=== PATIENT | female | born 1965 | race Caucasian/White ===

== ENCOUNTER 2021-08-23 09:23 | Emergency (ER) | payer BC ==
[2021-08-23 09:41] VITALS: BMI 36.8
[2021-08-23] MEDS ORDERED: CASIRIVIMAB/IMDEVIMAB 10 ML in SODIUM CHLORIDE 100 ML IVPB ONE (11:01)
[2021-08-23] MEDS ORDERED: ALBUTEROL SO4 HFA INHALER IH ONE ×2 (11:01→11:51)
[2021-08-23 13:16] VITALS: BP 129/77; PULSE 72; TEMP 98.3
== END 2021-08-23 13:37 | disposition home or self-care (01) ==
LOC: JCOVINFU 09:23 → JER 09:23 → JCOVINFU 13:37
PROC: 3E03329 Introduction of Other Anti-infective into Peripheral Vein, Percutaneous Approach (ICD-10-PCS; principal; 2021-08-23)
PROC: 3E0F7GC Introduction of Other Therapeutic Substance into Respiratory Tract, Via Natural or Artificial Opening (ICD-10-PCS; 2021-08-23)
DX: U07.1 COVID-19 (principal)
CPT/HCPCS: 71046-TC-FY; 99284-25; Q0240

== ENCOUNTER 2022-12-24 17:57 | Emergency (ER) | payer OTHER, BC ==
[2022-12-24 18:12] VITALS: TEMP 98.3; BMI 36.0
[2022-12-24] MEDS ORDERED: KETOROLAC TROMETHAMINE 30 MG/1 ML VIAL IM ONE (20:10)
[2022-12-24] MEDS ORDERED: KETOROLAC TROMETHAMINE 30 MG/1 ML VIAL ONE (20:25)
[2022-12-24 21:44] VITALS: BP 164/75; PULSE 73; RESP 19
== END 2022-12-24 21:59 | disposition home or self-care (01) ==
LOC: JERFT 17:57
PROC: 3E023GC Introduction of Other Therapeutic Substance into Muscle, Percutaneous Approach (ICD-10-PCS; principal; 2022-12-24)
DX: S69.91XA Unspecified injury of right wrist, hand and finger(s), initial encounter (principal); W01.0XXA Fall on same level from slipping, tripping and stumbling without subsequent striking against object, initial encounter
CPT/HCPCS: 71101-TC-RT-FY; 72100-TC-FY; 73030-TC-RT-FY; 73110-TC-RT-FY; 73130-TC-RT-FY; 73502-TC-RT-FY; 73562-TC-LT-FY; 73562-TC-RT-FY; 99284-25